=== PATIENT | female | born 1950 | race Caucasian/White ===

== ENCOUNTER 2018-02-21 23:39 | Emergency (ER) | payer MEDICARE, BC ==
[2018-02-22 00:25] LABS: BASO % 0.2 % (0.0-1.0); EOS % 0.8 % (0.0-3.0); HEMATOCRIT 31.8 % (36.0-47.0); HEMOGLOBIN 11.6 g/dl (12.0-15.5); LYMPH # 1.7 10^3/uL (1.5-4.5); MEAN CORPUSCULAR HGB CONC 36.5 g/dl (32.0-36.5); MEAN CORPUSCULAR VOLUME 87.6 fl (80.0-96.0); MONO # 0.6 10^3/uL (0.0-0.8); MONO % 10.9 % (0.0-5.0); NEUTROPHILS # 2.9 10^3/uL (1.8-7.7); NEUTROPHILS % 55.1 % (36.0-66.0); PLATELET COUNT, AUTOMATED 264 10^3/uL (150-450); RED BLOOD COUNT 3.63 10^6/uL (4.00-5.40); RED CELL DISTRIBUTION WIDTH 12.7 % (11.5-14.5); WHITE BLOOD COUNT 5.3 10^3/uL (4.0-10.0)
[2018-02-22 00:54] LABS: ALBUMIN 3.8 GM/DL (3.2-5.2); ALBUMIN/GLOBULIN RATIO 1.15 (1.00-1.93); ALKALINE PHOSPHATASE 77 U/L (45-117); ALT/SGPT 45 U/L (12-78); ANION GAP 10 MEQ/L (8-16); AST/SGOT 44 U/L (7-37); BILIRUBIN,DIRECT 0.1 MG/DL (0.0-0.2); BILIRUBIN,TOTAL 0.4 MG/DL (0.2-1.0); BLOOD UREA NITROGEN 20 MG/DL (7-18); CALCIUM LEVEL 9.7 MG/DL (8.8-10.2); CARBON DIOXIDE LEVEL 25 MEQ/L (21-32); CHLORIDE LEVEL 88 MEQ/L (98-107); CPK CREATINE PHOSPHOKINASE 458 U/L (26-192); CREATININE FOR GFR 0.81 MG/DL (0.55-1.30); GLOMERULAR FILTRATION RATE > 60.0 (>45); GLUCOSE, FASTING 101 MG/DL (70-100); LIPASE 226 U/L (73-393); SODIUM LEVEL 123 MEQ/L (136-145); TOTAL PROTEIN 7.1 GM/DL (6.4-8.2); TROPONIN I < 0.02 NG/ML (< 0.10)
[2018-02-22 00:55] LABS: CK-MB VALUE MASS 5.8 NG/ML (<3.6); MB/CK RELATIVE INDEX 1.26 (< OR =4); NT-PRO BNP 1028 PG/ML (<125)
[2018-02-22 05:26] LABS: CPK CREATINE PHOSPHOKINASE 345 U/L (26-192); TROPONIN I < 0.02 NG/ML (< 0.10)
[2018-02-22 05:27] LABS: CK-MB VALUE MASS 4.2 NG/ML (<3.6); MB/CK RELATIVE INDEX 1.21 (< OR =4)
== END 2018-02-22 06:25 | disposition home or self-care (01) ==
LOC: M ED 23:39
DX: R00.2 Palpitations (principal); I10 Essential (primary) hypertension; F41.9 Anxiety disorder, unspecified; Z98.890 Other specified postprocedural states; Z86.69 Personal history of other diseases of the nervous system and sense organs; Z79.52 Long term (current) use of systemic steroids; Z79.82 Long term (current) use of aspirin; Z79.899 Other long term (current) drug therapy
CPT/HCPCS: 71045

== ENCOUNTER → 2019-02-02 | Outpatient (CLI) | payer MEDICARE ==
[~2019-02-02] MED LIST: ALLO10TA PO; ASPI81TA85 PO; GABA-845 PO; HYDR-3713 PO; PRED20TA PO; QUET1TAB8 PO; VALS1TAB67 PO
--- NOTE | 2019-02-02 15:17 | REP ---
Clinical: Nontraumatic hip pain. Somatic dysfunction. Technique: Frontal view of the pelvis with neutral and frog lateral views of the right and left hip. Findings: Osseous structures and joint spaces are intact and normal for age. Hip joints appear symmetric. No acute fracture or dislocation. No significant degenerative or congenital abnormalities are appreciated. Surrounding soft tissues are unremarkable. Impression: Normal age-appropriate pelvis and bilateral hip series. Electronically Signed by Macho Christie MD 02/02/2019 03:08 P
== END ==
LOC: M RAD 14:36
DX: M99.05 Segmental and somatic dysfunction of pelvic region (principal)

== ENCOUNTER → 2020-02-03 | Outpatient (CLI) | payer MEDICARE ==
[~2020-02-03] MED LIST changes: +QUET100T2 PO; -QUET1TAB8 PO
== END ==
LOC: M PLALAB 08:36
PROVIDERS: ATTEND Psychiatry & Neurology Neurology
DX: G62.9 Polyneuropathy, unspecified (principal); E11.59 Type 2 diabetes mellitus with other circulatory complications

== ENCOUNTER → 2020-03-06 | Outpatient (CLI) | payer MEDICARE ==
--- NOTE | 2020-03-06 11:54 | REP ---
Clinical: Contusion. Technique: AP, lateral, bilateral oblique views of the right fourth digit. Findings: Age-related degenerative changes are appreciated. Lateral view best demonstrates an intra-articular corner fracture along the dorsal aspect of the distal phalanx. Impression: Intra-articular corner fracture at the base of the distal phalanx. Electronically Signed by Macho Christie MD 03/06/2020 11:46 A
== END ==
LOC: M WUC 11:29
PROVIDERS: ATTEND Physician Assistant
DX: S60.041A Contusion of right ring finger without damage to nail, initial encounter (principal); W18.30XA Fall on same level, unspecified, initial encounter; Y92.9 Unspecified place or not applicable

== ENCOUNTER 2021-01-24 17:50 | Inpatient (IN) | payer MEDICARE ==
[~2021-01-24] VITALS: Ht 165.1 cm; Wt 70.1 kg
[~2021-01-24 17:50] MED LIST changes: -ASPI81TA85 PO; +ASPI81TA86 PO; +GABA-283 PO; -GABA-845 PO
--- NOTE | 2021-01-24 18:27 | REP ---
INDICATION: CVA. COMPARISON: None. FINDINGS: The technique utilized in obtaining the radiograph has magnified the cardiac silhouette and accentuated the interstitial markings. The superior mediastinal structures are midline. The cardiac silhouette is unremarkable in size, shape, and position. The diaphragmatic surfaces of the lungs are regular, and the costophrenic angles are clear. The pulmonary sheets are clear. The imaged osseous structures are intact. IMPRESSION: There is no acute cardiopulmonary disease. <Electronically signed by Shree Reis > 01/24/21 [id number]
--- NOTE | 2021-01-24 18:41 | REPVR ---
PROCEDURE INFORMATION: Exam: CT Head Without Contrast Exam date and time: 01/24/2021 6:14 PM Age: 70 years old Clinical indication: Speech disturbance; Slurred speech; Additional info: CVA - nursing interventions must not delay CT TECHNIQUE: Imaging protocol: Computed tomography of the head without contrast. Radiation optimization: All CT scans at this facility use at least one of these dose optimization techniques: automated exposure control; mA and/or kV adjustment per patient size (includes targeted exams where dose is matched to clinical indication); or iterative reconstruction. Other technique: STROKE PROTOCOL was implemented. COMPARISON: No relevant prior studies available. FINDINGS: Brain: There is no evidence of infarct, christianson-white matter differentiation is preserved. There is no hemorrhage or extra-axial collection. There is no mass. Cerebral ventricles: There is no hydrocephalus. Bones/joints: Unremarkable. No acute fracture. Paranasal sinuses: Visualized sinuses are unremarkable. No fluid levels. Mastoid air cells: Visualized mastoid air cells are well aerated. Soft tissues: Unremarkable. IMPRESSION: No intracranial lesion or injury ASSESSMENT: ASPECTS ([place] Stroke Program Early CT Score) is 10. Electronically signed by: Raul Patterson On 01/24/2021 18:40:50 PM
[2021-01-24 19:05] LABS: BASO % 0.4 % (0.0-1.0); HEMATOCRIT 29.9 % (36.0-47.0); HEMOGLOBIN 10.3 g/dl (12.0-15.5); LYMPH # 0.7 10^3/uL (1.5-5.0); LYMPH % 30.5 % (24.0-44.0); MEAN CORPUSCULAR HEMOGLOBIN 31.3 pg (27.0-33.0); MEAN CORPUSCULAR HGB CONC 34.4 g/dl (32.0-36.5); MEAN CORPUSCULAR VOLUME 90.9 fl (80.0-96.0); MONO # 0.3 10^3/uL (0.0-0.8); MONO % 14.4 % (2.0-8.0); NEUTROPHILS # 1.3 10^3/uL (1.5-8.5); NEUTROPHILS % 54.3 % (36.0-66.0); PLATELET COUNT, AUTOMATED 145 10^3/uL (150-450); RED BLOOD COUNT 3.29 10^6/uL (4.00-5.40); WHITE BLOOD COUNT 2.4 10^3/uL (4.0-10.0)
[2021-01-24 19:16] LABS: INR 1.01; PROTHROMBIN TIME 13.5 SECONDS (12.5-14.3)
[2021-01-24 19:17] LABS: PARTIAL THROMBOPLASTIN TIME 31.2 SECONDS (24.2-38.5)
[2021-01-24] MEDS ORDERED: TRAZ150T90 PO (19:26)
[2021-01-24] MEDS ORDERED: GABA800T4 PO (19:26)
[2021-01-24] MEDS ORDERED: CRAN500C5 PO (19:26)
[2021-01-24] MEDS ORDERED: ZYLO300T6 PO (19:26)
[2021-01-24] MEDS ORDERED: CALC1TAB74 PO (19:26)
[2021-01-24] MEDS ORDERED: MAGN400C PO (19:26)
[2021-01-24] MEDS ORDERED: HYDR-3363 PO (19:26)
[2021-01-24] MEDS ORDERED: LOSA100T50 PO (19:26)
[2021-01-24] MEDS ORDERED: RISP-8 PO (19:26)
[2021-01-24] MEDS ORDERED: PRES10CA2 PO (19:26)
[2021-01-24] MEDS ORDERED: DIVA500T9 PO (19:26)
[2021-01-24 19:38] LABS: ALBUMIN 3.6 GM/DL (3.2-5.2); ALT/SGPT 28 U/L (12-78); BILIRUBIN,DIRECT 0.2 MG/DL (0.0-0.2); BILIRUBIN,TOTAL 0.5 MG/DL (0.2-1.0); BLOOD UREA NITROGEN 13 MG/DL (7-18); CALCIUM LEVEL 8.8 MG/DL (8.8-10.2); CARBON DIOXIDE LEVEL 26 MEQ/L (21-32); CHLORIDE LEVEL 93 MEQ/L (98-107); CPK CREATINE PHOSPHOKINASE 351 U/L (26-192); FREE T4 1.08 NG/DL (0.76-1.46); GLOMERULAR FILTRATION RATE > 60.0 (>45); GLUCOSE, FASTING 78 MG/DL (70-100); MB/CK RELATIVE INDEX 1.71 (< OR =4); POTASSIUM SERUM 4.1 MEQ/L (3.5-5.1); SODIUM LEVEL 127 MEQ/L (136-145); TOTAL PROTEIN 6.4 GM/DL (6.4-8.2); TROPONIN I < 0.02 NG/ML (< 0.10); VALPROIC ACID (DEPAKOTE) 51.6 UG/ML (50.0-100.0)
[2021-01-24] MEDS ORDERED: MOM 30ML SUSPENSION UDC PO PRN (20:15)
[2021-01-24] MEDS ORDERED: MAALOX 30 ML SUSP *UDC PO PRN (20:15)
[2021-01-24] MEDS ORDERED: ACETAMINOPHEN TAB 650MG DOSE (2X325MG) PO PRN (20:15)
--- NOTE | 2021-01-24 20:26 | HPEPDOC ---
[facility] Medical History & Physical Date of Admission January 24, 2021 Date of Service: January 24, 2021 Primary Care Physician: Isaiah Rosales Attending Physician: JEMIMA TURK MD History and Physical TIME OF SERVICE: 1005PM CHIEF COMPLAINT: abnormal speech HISTORY OF PRESENT ILLNESS: This 70 yr old presented w c/o speaking slower, word finding difficulties, lethargy, and her legs feeling heavy. These symptoms begun at the end of December, 2 weeks after she was started on Depakot and Risperidone. She hasnt fallen or lost consciousness. Per her NIH score was 0. REVIEW OF SYSTEMS: 12-point review of systems negative except as listed in HPI PAST MEDICAL/ SURGICAL HISTORY: Bipolar (pt denies diagnosis but admits to 1 episodes of cristobal), Essential HTN, microvascular ischemic dz, insomina, Gout, remote hx of Hyponatremia SOCIAL HISTORY: doesnt smoke, lives in [place] but has property in the area FAMILY HISTORY: n/a ALLERGIES: Please see below. HOME MEDICATIONS: Please see below. PHYSICAL EXAMINATION: VITAL SIGNS: Please see below. GENERAL APPEARANCE: well nourished and developed HEENT: NAD/ EOMI CARDIOVASCULAR: RRR/NMRG/ no LE edema LUNGS: CTAB on on RA ABDOMEN: flat MUSCULOSKELETAL: AARTI x 4 INTEGUMENT: not flushed or diaphoretic NEUROLOGICAL: CN 2-12 intact / speech not dysarthric PSYCHIATRIC: A&Ox 3/ able to understand and follow all commands/ speech slightly slow but pt is able to express herself appropriately and the content of her speech is congruent w the conversation EKG NSR no ST changes rate 63 LABORATORY DATA: Immature Granulocyte % (Auto) 0.4, Neutrophils (%) (Auto) 54.3, Lymphocytes (%) (Auto) 30.5, Monocytes (%) (Auto) 14.4H, Eosinophils (%) (Auto) 0.0, Basophils (%) (Auto) 0.4, Neutrophils # (Auto) 1.3L, Lymphocytes # (Auto) 0.7L, Monocytes # (Auto) 0.3, Eosinophils # (Auto) 0.0, Basophils # (Auto) 0.0, Nucleated Red Blood Cells % (auto) 0.0, Prothrombin Time 13.5, Prothromb Time International Ratio 1.01, Activated Partial Thromboplast Time 31.2, Anion Gap 8, Glomerular Filtration Rate > 60.0, Calcium Level 8.8, Total Bilirubin 0.5, Direct Bilirubin 0.2, Aspartate Amino Transf (AST/SGOT) 38H, Alanine Aminotransferase (ALT/SGPT) 28, Alkaline Phosphatase 63, Total Creatine Kinase 351H, Creatine Kinase MB 6.0H, Creatine Kinase MB Relative Index 1.71, Troponin I < 0.02, Total Protein 6.4, Albumin 3.6, Albumin/Globulin Ratio 1.3, Thyroid Stimulating Hormone (TSH) 1.150, Free Thyroxine 1.08, Valproic Acid (Depakene) Level 51.6 01/24/21 19:07: Ammonia < 10 IMAGING: Chest xray IMPRESSION: There is no acute cardiopulmonary disease. CT head IMPRESSION: No intracranial lesion or injury ASSESSMENT: ASPECTS (A [facility] Stroke Program Early CT Score) is 10. MRI brain IMPRESSION: 1. Minimal hyperintense foci within the white matter consistent with minimal chronic microvascular disease 2. No acute intracranial lesion or injury MRA brain IMPRESSION: Normal brain MRA MICROBIOLOGY: Respiratory panel neg ASSESSMENT: is a 70 yr old w Bipolar disorder, HTN, microvascular ischemic dz, insomina, Gout & remote hx of Hyponatremia who presented w c/o abnormal speech & fatigue possibly due to hyponatremia. PLAN: 1 Hypotonic hyponatremia The abnormal speech & fatigue possibly due to acute on chronic hyponatremia Because her Huber >20 this may be due to losartan. She may also have component of psychogenic polydipsia (drinks about 3L of fluids daily There is no need to correct this urgently bc her symptoms are not acute Plan: f/u repeat Serum Na, Serum osmol, Uosmol & Huber Q4H / frequent Neurochecks / monitor strict intake &UOP / restrict fluids to 2L / hold losartan / obtain records (labs) from [place] Gen 2 Pancytopenia Possibly due to Valproic acid Plan: f/u peripheral smear, B12, folate, Hep panel / the day time team may consider offering the pt an HIV test 3 Elevated LFTs (CPK and AST) Likely due to chronic meds Plan: f/u UDS, Hep panel and liver US 4 Bipolar disorder/ Insomnia Plan: Divalproex, Risperidone, Trazodone 5 Essential HTN / microvascular ischemic dz Plan: Hold Losartan / start amlodipine 6 Gout Plan: Allopurinol DVT px w lovenox Dispo: home after at least 2 midnights stay Home Medications Scheduled Allopurinol (Zyloprim) 300 Mg Tablet, 300 MG PO DAILY Calcium Carbonate/Vitamin D3 (Calcium 600-Vit D3 400 Tablet) 1 Each Tablet, 1 TAB PO DAILY Cranberry Fruit Extract (Cranberry Concentrate) 500 Mg Capsule, 500 MG PO Q2D Divalproex Sodium (Divalproex Sodium ER) 500 Mg Tab.er.24h, 500 MG PO QHS Gabapentin (Gabapentin) 800 Mg Tablet, 800 MG PO TID Losartan Potassium (Losartan Potassium) 100 Mg Tablet, 100 MG PO DAILY Magnesium Oxide (Magnesium) 400 Mg Capsule, 400 MG PO DAILY Risperidone (Risperidone) 1 Mg Tablet, 1 MG PO BID Trazodone HCl (Trazodone HCl) 150 Mg Tablet, 150 MG PO QHS Vit C/E/Zn/Coppr/Lutein/Zeaxan (Preservision Areds 2 Softgel) 1 Each Capsule, 1 CAP PO BID Scheduled PRN Hydroxyzine HCl (Hydroxyzine HCl) 25 Mg Tablet, 25 MG PO Q6H PRN for ANXIETY Allergies Coded Allergies: No Known Allergies (Unverified , 02/21/18) A-FIB/CHADSVASC A-FIB History Current/History of A-Fib/PAF?: No Current PO Anticoag Therapy: No JMEIMA TURK MD January 24, 2021 20:26
[2021-01-24] MEDS ORDERED: traZODone 50 MG TAB PO SCH (21:00)
[2021-01-24] MEDS ORDERED: DIVALPROEX 500MG *ER* TAB PO SCH (21:00)
--- NOTE | 2021-01-24 21:32 | REPVR ---
PROCEDURE INFORMATION: Exam: MR Head Without Contrast Exam date and time: 01/24/2021 8:11 PM Age: 70 years old Clinical indication: Speech disturbance; Slurred speech; Additional info: CVA TECHNIQUE: Imaging protocol: MR of the head without contrast. COMPARISON: CT Head without contrast 01/24/2021 6:28 PM FINDINGS: Brain: There is volume loss. There are few hyperintense foci within the white matter. DWI demonstrates no evidence of acute infarct. Gradient echo images demonstrate no evidence of hemorrhage. There is no extra-axial collection. There is no abnormal flow voids. There is no mass Cerebral ventricles: There is no hydrocephalus. Bones/joints: Unremarkable. Paranasal sinuses: There is mucosal thickening in the ethmoids. No air-fluid levels. Mastoid air cells: Normal as visualized. No mastoid effusion. Orbital cavity: Unremarkable. Soft tissues: Unremarkable. IMPRESSION: 1. Minimal hyperintense foci within the white matter consistent with minimal chronic microvascular disease 2. No acute intracranial lesion or injury Electronically signed by: Raul Patterson On 01/24/2021 21:32:38 PM
--- NOTE | 2021-01-24 21:35 | REPVR ---
PROCEDURE INFORMATION: Exam: MRA Head Without Contrast; Arteriography Exam date and time: 01/24/2021 8:11 PM Age: 70 years old Clinical indication: Speech disturbance; Slurred speech; Additional info: CVA TECHNIQUE: Imaging protocol: Magnetic resonance angiography head without contrast. Exam focused on the arteries. COMPARISON: CT Head without contrast 01/24/2021 6:28 PM FINDINGS: ANTERIOR CIRCULATION: Right internal carotid artery: Intracranial segment is patent with no significant stenosis. No aneurysm. Right middle cerebral artery: No occlusion or significant stenosis. No aneurysm. Right anterior cerebral artery: No occlusion or significant stenosis. No aneurysm. Left internal carotid artery: Intracranial segment is patent with no significant stenosis. No aneurysm. Left middle cerebral artery: No occlusion or significant stenosis. No aneurysm. Left anterior cerebral artery: No occlusion or significant stenosis. No aneurysm. POSTERIOR CIRCULATION: Right vertebral artery: No occlusion or significant stenosis. No aneurysm. Left vertebral artery: No occlusion or significant stenosis. No aneurysm. Basilar artery: No occlusion or significant stenosis. No aneurysm. Right posterior cerebral artery: No occlusion or significant stenosis. No aneurysm. Left posterior cerebral artery: No occlusion or significant stenosis. No aneurysm. IMPRESSION: Normal brain MRA Electronically signed by: Raul Patterson On 01/24/2021 21:35:06 PM
[2021-01-24 22:35] LABS: FOLATE 11.6 NG/ML (>5.4); VITAMIN B12 LEVEL 1060 PG/ML (247-911)
[2021-01-24 22:41] LABS: OSMOLALITY SERUM 261 MOSM/KG (280-301)
[2021-01-24 22:56] LABS: FERRITIN 65 NG/ML (8-252); HEPATITIS B SURFACE ANTIGEN NEGATIVE (NEGATIVE); IRON (FE) 59 UG/DL (50-170); PERCENT SATURATION 18.9 % (13.2-45.0); TOTAL IRON BINDING CAPACITY 312 UG/DL (250-450)
[2021-01-24 23:14] VITALS: BP 135/68
[2021-01-24 23:15] LABS: HEPATITIS B CORE ANTIBODY IGM NEGATIVE (NEGATIVE)
[2021-01-24] MEDS ORDERED: hydrOXYzine 25 MG TAB PO PRN (23:20)
[2021-01-24] MEDS: GABAPENTIN 400MG CAP PO SCH (23:49)
[2021-01-24] MEDS: risperiDONE 1 MG TAB PO SCH (23:50)
[2021-01-25 00:12] LABS: SODIUM,RANDOM URINE 49 MEQ/L
[2021-01-25 00:30] LABS: AMPHETAMINES LEVEL URINE NEGATIVE (NEGATIVE); BARBITURATES URINE NEGATIVE (NEGATIVE); BENZODIAZEPINES URINE NEGATIVE (NEGATIVE); CANNABINOIDS URINE NEGATIVE (NEGATIVE); COCAINE METABOLITE URINE NEGATIVE (NEGATIVE); METHADONE URINE NEGATIVE (NEGATIVE); OPIATES URINE NEGATIVE (NEGATIVE); PHENCYCLIDINE URINE NEGATIVE (NEGATIVE)
[2021-01-25 00:45] LABS: OSMOLALITY URINE 175 MOSM/KG (50-1400)
[2021-01-25 00:58] LABS: SODIUM LEVEL 129 MEQ/L (136-145)
[2021-01-25 01:07] LABS: OSMOLALITY SERUM 268 MOSM/KG (280-301)
[2021-01-25 01:40] LABS: APPEARANCE, URINE CLEAR (CLEAR); BACTERIA, URINE AUTO NEGATIVE (NEGATIVE); BILIRUBIN, URINE AUTO NEGATIVE (NEGATIVE); BLOOD, URINE BLOOD 2+ (NEGATIVE); COLOR, URINE COLORLESS (YELLOW); GLUCOSE, URINE (UA) AUTO NEGATIVE (NEGATIVE); KETONE, URINE AUTO NEGATIVE (NEGATIVE); LEUKOCYTE ESTERASE, URINE AUTO 2+ (NEGATIVE); NITRITE, URINE AUTO NEGATIVE (NEGATIVE); PROTEIN, URINE AUTO NEGATIVE (NEGATIVE); RBC, URINE AUTO 13 /HPF (0-3); SPECIFIC GRAVITY URINE AUTO 1.004 (1.002-1.035); SQUAMOUS EPITHELIAL CELL UR AU 0 /HPF (0-6); TRANSITIONAL EPITHELIAL AUTO <1 /HPF; UROBILINOGEN, URINE AUTO 0.2 mg/dL (0.0-2.0); WBC, URINE AUTO 6 /HPF (0-3)
[2021-01-25 04:42] LABS: HEMATOCRIT 29.5 % (36.0-47.0); HEMOGLOBIN 10.2 g/dl (12.0-15.5); MEAN CORPUSCULAR HEMOGLOBIN 31.7 pg (27.0-33.0); MEAN CORPUSCULAR HGB CONC 34.6 g/dl (32.0-36.5); MEAN CORPUSCULAR VOLUME 91.6 fl (80.0-96.0); PLATELET COUNT, AUTOMATED 139 10^3/uL (150-450); RED BLOOD COUNT 3.22 10^6/uL (4.00-5.40); WHITE BLOOD COUNT 1.8 10^3/uL (4.0-10.0)
[2021-01-25 05:01] LABS: OSMOLALITY URINE 140 MOSM/KG (50-1400)
[2021-01-25 05:02] LABS: SODIUM,RANDOM URINE 40 MEQ/L
[2021-01-25 05:08] LABS: OSMOLALITY SERUM 269 MOSM/KG (280-301)
[2021-01-25 05:14] LABS: BLOOD UREA NITROGEN 12 MG/DL (7-18); CALCIUM LEVEL 8.4 MG/DL (8.8-10.2); CARBON DIOXIDE LEVEL 29 MEQ/L (21-32); CHLORIDE LEVEL 100 MEQ/L (98-107); CPK CREATINE PHOSPHOKINASE 269 U/L (26-192); CREATININE FOR GFR 0.54 MG/DL (0.55-1.30); GLOMERULAR FILTRATION RATE > 60.0 (>45); GLUCOSE, FASTING 92 MG/DL (70-100); SODIUM LEVEL 133 MEQ/L (136-145)
[2021-01-25 07:34] VITALS: BP 107/55
[2021-01-25] MEDS: risperiDONE 1 MG TAB PO SCH (08:56)
[2021-01-25] MEDS: GABAPENTIN 400MG CAP PO SCH (08:56)
[2021-01-25 08:57] VITALS: BP 107/55
[2021-01-25] MEDS ORDERED: ENOXAPARIN 40MG/0.4ML SYRINGE (J1650 PER 10MG) SC SCH (09:00)
[2021-01-25] MEDS ORDERED: allopurinoL 300 MG TAB PO SCH (09:00)
[2021-01-25] MEDS ORDERED: MAGNESIUM OXIDE 400MG TAB (MAG-OX) PO SCH (09:00)
[2021-01-25] MEDS ORDERED: SLF 3 ML SYR IV PRN (09:05)
[2021-01-25 09:14] LABS: SODIUM LEVEL 133 MEQ/L (136-145)
[2021-01-25 09:50] LABS: OSMOLALITY SERUM 281 MOSM/KG (280-301)
[2021-01-25 09:54] LABS: SODIUM,RANDOM URINE 58 MEQ/L
[2021-01-25 09:59] LABS: OSMOLALITY URINE 208 MOSM/KG (50-1400)
[2021-01-25 10:01] LABS: HEPATITIS A ANTIBODY IGM NEGATIVE (NEGATIVE)
[2021-01-25 10:50] LABS: HIV 1&2 SCREEN CENTAUR NEGATIVE (NEGATIVE)
[2021-01-25 12:00] VITALS: BP 119/56
[2021-01-25 12:22] LABS: SODIUM LEVEL 132 MEQ/L (136-145)
[2021-01-25 12:34] LABS: OSMOLALITY SERUM 276 MOSM/KG (280-301)
[2021-01-25] MEDS ORDERED: SLF 3 ML SYR IV SCH (14:00)
--- NOTE | 2021-01-25 19:24 | DSES ---
DISCHARGE SUMMARY DATE OF ADMISSION: 01/24/2021 DATE OF DISCHARGE: 01/25/2021 DISCHARGE DIAGNOSES: 1. Mild hyponatremia. 2. Chronic pancytopenia. 3. Dysarthric speech. 4. History of hypertension. 5. History of bipolar disorder. CONSULTANTS ON THE CASE: None. PROCEDURES PERFORMED DURING THIS HOSPITALIZATION: None. DISPOSITION: The patient was discharged home. CONDITION ON DISCHARGE: Stable without any recurrence of her symptoms. DISCHARGE INSTRUCTIONS: The patient is instructed to follow-up with her PCP for further outpatient workup for her hyponatremia. She is also to follow-up with a psychiatrist to consider discontinuing Depakote or risperidone. IMAGING STUDIES OBTAINED DURING THIS HOSPITALIZATION: Chest x-ray one view. This showed no acute cardiopulmonary process. CT of the head without contrast that showed no acute intracranial abnormality. MRI of the head and neck, which showed no evidence of any pathology. MRI of the head without contrast that showed no evidence of acute intracranial lesion. PERTINENT LABORATORY DATA: Sodium was 127 on admission improved to 133. Potassium 4, chloride 93, bicarb 26, anion gap 8, BUN 13, creatinine 0.7, glucose 78. Serum osmolality 261, calcium 8.8. Iron 59, TIBC 312, ferritin 65. Total bilirubin 0.5, direct bilirubin 0.2, AST 38, ALT 28, alkaline phosphatase 63. CPK 351. Initial troponin marker was negative. Albumin was 3.6. Vitamin B12 was 1060. Folate was 11.6. TSH was 1.15 and free T4 was 1.08. Urine drug screen was negative. Valproic acid level was 51.6. Coags were normal with PT of 13.5, INR of 1, PTT of 31.2. Urinalysis was also unremarkable. Urine osmolality was 175 with a urine sodium of 49. Hepatitis panel was negative. HIV antigen and antibody combo was negative also. COVID swab was negative. HOSPITAL COURSE: Isidra is a 70-year-old woman who presented to the hospital with complaints of abnormal speech, which she thought felt slower. She was having difficulty findings words, lethargy, and her legs felt heavy. On arrival to the ER, she had an NIH stroke score of 0. She was admitted to the hospitalist service to observation status. She was noted to have a sodium level of 127. She was given IV fluids and losartan was held. Her sodium corrected. 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 Clinically the patient's symptoms have resolved. MRI of the brain, as well as MRA of the brain and neck was otherwise unremarkable. The patient was discharged home in stable condition. She is instructed to follow-up with her psychiatrist to consider switching the Depakote and the risperidone as she accounts all development of her symptoms since after starting that. DISCHARGE PHYSICAL EXAMINATION: VITAL SIGNS: Temperature 97.4, pulse 66, respiratory rate 18, blood pressure 119/56, O2 sat 100% on room air. GENERAL: The patient is alert and oriented x3, appears in no acute distress. She is resting comfortably and her speech is fluent without any slurring. She has no facial asymmetry. SKIN: Intact and warm to touch. HEENT: Head is atraumatic and normocephalic. Pupils symmetric and reactive to light. Oropharynx is clear. NECK: Supple. LUNGS: Sounds present without rales, wheezing, or rhonchi. HEART: S1, S2. No murmurs or gallops. ABDOMEN: Soft, nontender, and nondistended. EXTREMITIES: Without any cyanosis, clubbing, or edema. NEUROLOGIC: Cranial nerves 2 through 12 are grossly intact without any focal neurologic deficits. Gait is preserved. Total of 30 minutes spent completing all discharge paperwork.
--- NOTE | 2021-01-25 20:24 | ECGEPIP ---
[facility] - ED Test Date: 2021-01-24 Pat Name: BHAVIN GRANDE Department: Room: [place] [id number] Gender: Female Social Security Specialist: HC : 1950 Requested By: LUCY Tolbert Order Number: [id number] Reading MD: Lauren Peña Measurements Intervals [place] Rate: 63 P: 54 NV: 144 QRS: 74 QRSD: 84 T: 35 QT: 414 QTc: 423 Interpretive Statements Normal sinus rhythm similar 02/22/18 Electronically Signed on 01-25-2021 20:24:13 EDT by Lauren Peña
== END 2021-01-25 13:13 | disposition home or self-care (01) | DRG 640 ==
LOC: M ED 17:50 → M ED INP 20:13 → ENRESERV 22:41 → M PCU 23:05
PROVIDERS: ADMIT Internal Medicine; ATTEND Internal Medicine
DX: E87.1 Hypo-osmolality and hyponatremia (principal); D61.811 Other drug-induced pancytopenia; I67.82 Cerebral ischemia; F31.9 Bipolar disorder, unspecified; R47.1 Dysarthria and anarthria; I10 Essential (primary) hypertension; G47.00 Insomnia, unspecified; M10.9 Gout, unspecified; Z79.899 Other long term (current) drug therapy

== ENCOUNTER → 2021-03-02 | Outpatient (CLI) | payer MEDICARE ==
[~2021-03-02] MED LIST changes: +CALC1TAB74 PO; +CRAN500C5 PO; +DIVA500T9 PO; +GABA800T4 PO; +HYDR-3363 PO; +LOSA100T50 PO; +MAGN400C PO; +PRES10CA2 PO; +RISP-8 PO; +TRAZ150T90 PO; +ZYLO300T6 PO
== END ==
LOC: M LABSMTC 08:03
DX: Z01.818 Encounter for other preprocedural examination (principal); Z11.52 Encounter for screening for COVID-19

== ENCOUNTER → 2022-02-05 | Outpatient (CLI) | payer MEDICARE ==
[~2022-02-05] MED LIST changes: +LOSA100T45 PO; -LOSA100T50 PO
== END ==
LOC: M WUC 09:10
DX: M25.531 Pain in right wrist (principal); M19.231 Secondary osteoarthritis, right wrist

== ENCOUNTER → 2025-05-03 | Outpatient (REF) | payer MEDICARE ==
[~2025-05-03] MED LIST changes: +GABA-1635 PO; -GABA-283 PO; +GABA-284 PO; -GABA800T4 PO; -LOSA100T45 PO; +LOSA100T46 PO; +RISP-105 PO; -RISP-8 PO
[2025-05-03 20:09] LABS: BASO # 0.0 10^3/uL (0.0-0.2); BASO % 0.6 % (0.0-1.0); EOS # 0.0 10^3/uL (0.0-0.5); EOS % 0.0 % (0.0-3.0); LYMPH # 1.0 10^3/uL (1.5-5.0); LYMPH % 28.9 % (24.0-44.0); MONO # 0.3 10^3/uL (0.0-0.8); MONO % 9.3 % (2.0-8.0); NEUTROPHILS # 2.1 10^3/uL (1.5-8.5); NEUTROPHILS % 60.9 % (36.0-66.0); PLATELET COUNT, AUTOMATED 193 10^3/uL (150-450)
== END ==
LOC: M LABDRAWC 17:58
DX: D72.819 Decreased white blood cell count, unspecified (principal)